=== PATIENT | female | born 1950 | race Caucasian/White ===

== ENCOUNTER 2016-07-06 16:38 | Inpatient (IN) | payer MEDICARE, OTHER ==
[~2016-07-06 16:38] MED LIST: GLYCOPYRROLATE INJ 0.4 MG/2 ML VIAL ONE; LIDOCAINE 2% INJ-PF (20 MG/ML) 10 ML AMPUL ONE; METOCLOPRAMIDE HCL INJ/PF 10 MG/2 ML SDV ONE; NEOSTIGMINE METHYLSULFATE 10 MG/10 ML VIAL ONE; ONDANSETRON HCL INJ/PF 4 MG/2 ML SDV ONE; ROCURONIUM BROMIDE INJ 50 MG/5 ML VIAL IV ONE; SUCCINYLCHOLINE CHLORIDE INJ 200 MG/10 ML VIAL ONE
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
[2016-07-06] MEDS ORDERED: NORMAL SALINE 1000 ML 1,000 ML IV ONE (17:23)
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
[2016-07-06] MEDS ORDERED: FENTANYL CITRATE INJ/PF 100 MCG/2 ML AMPUL ONE (18:09)
[2016-07-06] MEDS ORDERED: HYDROMORPHONE HCL INJ/PF 2 MG/ML AMPULE ONE (18:09)
[2016-07-06] MEDS ORDERED: MIDAZOLAM 2 MG/2 ML INJ ONE (18:09)
[2016-07-06] MEDS ORDERED: EPHEDRINE SULFATE INJ 50 MG/1 ML AMPULE ONE (18:09)
[2016-07-06] MEDS ORDERED: PROPOFOL INJ 200 MG/20 ML VIAL IV ONE (18:09)
[2016-07-06 18:11] LABS: ABSOLUTE BASOPHILS # (AUTO) 0.1 10^3/uL (0.0-0.2); ABSOLUTE LYMPHOCYTES (AUTO) 1.2 10^3/uL (0.5-4.7); ABSOLUTE MONOCYTES (AUTO) 1.3 10^3/uL (0.1-1.4); ABSOLUTE NEUT (AUTO) 14.8 10^3/uL (1.7-8.2); BASOPHILS % (AUTO) 0.4 % (0-2); EOSINOPHILS % (AUTO) 0.1 % (0-6); HEMATOCRIT 42.7 % (36.0-47.0); HEMOGLOBIN 13.9 g/dL (12.0-15.5); LYMPHOCYTES % (AUTO) 7.1 % (13-45); MEAN CORPUSCULAR HEMOGLOBIN 29.8 pg (27.0-33.4); MEAN CORPUSCULAR HGB CONC 32.6 g/dL (32.0-36.0); MEAN CORPUSCULAR VOLUME 91 fl (80-97); MONOCYTES % (AUTO) 7.3 % (3-13); RED BLOOD COUNT 4.69 10^6/uL (3.72-5.28); SEGMENTED NEUTROPHILS % (AUTO) 85.1 % (42-78); WHITE BLOOD COUNT 17.4 10^3/uL (4.0-10.5)
[2016-07-06] MEDS ORDERED: BUPIVACAINE HCL 0.25 % INJ/PF (2.5 MG/1 ML) 30 ML VIAL ONE (18:12)
[2016-07-06 18:18] LABS: PROTHROMBIN TIME 13.1 SEC (11.4-15.4)
[2016-07-06 18:19] LABS: PARTIAL THROMBOPLASTIN TIME 33.6 SEC (23.5-35.8)
[2016-07-06 18:24] LABS: ALANINE AMINOTRANSFERASE 23 U/L (9-52); ALBUMIN 4.1 g/dL (3.5-5.0); ALKALINE PHOSPHATASE 101 U/L (38-126); ANION GAP 15 (5-19); ASPARTATE AMINO TRANSFERASE 16 U/L (14-36); BILIRUBIN,DIRECT 0.6 mg/dL (0.0-0.4); BILIRUBIN,TOTAL 1.8 mg/dL (0.2-1.3); BLOOD UREA NITROGEN 10 mg/dL (7-20); CALCIUM 9.5 mg/dL (8.4-10.2); CARBON DIOXIDE 25 mmol/L (22-30); CHLORIDE 98 mmol/L (98-107); CREATININE RESULT 0.66 mg/dL (0.52-1.25); GLUCOSE 97 mg/dL (75-110); POTASSIUM 3.7 mmol/L (3.6-5.0); SODIUM 138.2 mmol/L (137-145); TOTAL PROTEIN 7.4 g/dL (6.3-8.2)
[2016-07-06] MEDS ORDERED: AMPICILLIN SOD/SULBACTAM 3 GM VIAL ONE (18:39)
[2016-07-06] MEDS ORDERED: PROMETHAZINE HCL INJ 25 MG/1 ML VIAL IV PRN (19:16)
[2016-07-06] MEDS ORDERED: DIPHENHYDRAMINE HCL 50 MG/ML VIAL IV PRN (19:16)
[2016-07-06] MEDS ORDERED: MEPERIDINE HCL/PF INJ 25 MG/1 ML DISP.SYRIN IV PRN (19:16)
[2016-07-06] MEDS ORDERED: FENTANYL CITRATE INJ/PF 100 MCG/2 ML AMPUL IV PRN ×3 (19:16)
[2016-07-06] MEDS ORDERED: BUPIVACAINE HCL 0.25 % INJ/PF (2.5 MG/1 ML) 30 ML VIAL INJ ONE (19:18)
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
--- NOTE | 2016-07-06 21:48 | OPERATIVE REPORT E ---
Operative Report NAME: NEIL GIRON : 1950 AGE: 66Y DATE OF SURGERY: 07/06/2016 ROOM: ED35 PREOPERATIVE DIAGNOSIS: Acute appendicitis. POSTOPERATIVE DIAGNOSIS: Acute appendicitis. OPERATION: Attempted laparoscopic appendectomy, open appendectomy. SURGEON: NERIS GARIBAY M.D. ANESTHESIA: General. INDICATIONS: This is a 66-year-old female with right lower quadrant pain for the past 2 days. She had a CT scan of the abdomen in an urgent care center today which was compatible with acute appendicitis. The patient did have multiple operations in the past. PROCEDURE: After adequate general anesthesia, the abdomen was then prepped and draped in the usual sterile fashion. Appropriate timeout was then performed. An attempted laparoscopic appendectomy was performed by placing 3 ports in the right upper quadrant, right lower quadrant, and the left lower quadrant areas after lysing some of the adhesions. Unfortunately, it was quite impossible to identify the appendix in view of the limited exposure. Because of this, the procedure was converted to an open. Next, a midline incision was made just above the umbilicus to just above the symphysis pubis. The fascia was then opened, and the adhesions were lysed. Next, the cecum was then identified and followed into the area of the appendix. It was retrocecal and very adherent towards the cecal area. There was some inflammation noted around this area. Next, the base of the appendix was then dissected from the cecum and ligated with 2-0 Vicryl to subsequently divide it. The stump was then electrocoagulated. The appendix was then dissected bluntly and sharply with the use of harmonic david. Part of the appendix was disconnected, and the rest of the appendix was then further dissected out. The area was then irrigated with saline solution copiously. There were quite extensive adhesions. The base of the appendiceal stump was subsequently pushed in a pursestring suture using 3-0 silk. Next, the fascia was then closed with running suture using #1 PDS. The fascial defects on the right upper quadrant and left lower quadrant incisions were attempted laparoscopic procedure were then closed with interrupted sutures of 0 Vicryl. The subcutaneous layers were then irrigated with saline solution and closed with interrupted bryan. Telfa carlos manuel soaked in Betadine were then used to place in between the bryan. Sterile dressings were then placed over the operative sites. Needle, instrument and sponge counts were all correct, and estimated blood loss was 30 mL. The patient tolerated the procedure well and brought to the recovery room in satisfactory condition. DICTATING PHYSICIAN: NERIS GARIBAY M.D. [id number] PHY#: [id number] ID: [id number] JOB#: [id number] ACCT: [id number] cc:NERIS GARIBAY M.D. >
[2016-07-06] MEDS: ONDANSETRON HCL INJ/PF 4 MG/2 ML SDV IV PRN (22:42)
[2016-07-07] MEDS: PIPERACILLIN SODIUM/TAZOBACTAM 3.375 GM in NORMAL SALINE 100 ML IV SCH ×4 (00:25→20:03)
[2016-07-07] MEDS: HYDROMORPHONE HCL INJ/PF 2 MG/ML AMPULE IV PRN ×5 (01:46→21:16)
[2016-07-07 02:26] LABS: APPEARANCE,URINE CLEAR; BILIRUBIN,URINE NEGATIVE (NEGATIVE); GLUCOSE, URINE NEGATIVE (NEGATIVE); KETONES,URINE 80 mg/dL (NEGATIVE); LEUKOCYTE ESTERASE,URINE NEGATIVE (NEGATIVE); NITRITE,URINE NEGATIVE (NEGATIVE); PROTEIN,URINE NEGATIVE (NEGATIVE); URINE SPECIFIC GRAVITY 1.034; UROBILINOGEN,URINE NEGATIVE mg/dL (<2.0)
[2016-07-07] MEDS: NORMAL SALINE 1000 ML 1,000 ML IV PRN ×2 (05:10→22:36)
[2016-07-07 06:44] LABS: MEAN CORPUSCULAR VOLUME 91 fl (80-97)
[2016-07-07 06:58] LABS: HGB HCT DIFFERENCE 0.4; MEAN CORPUSCULAR HEMOGLOBIN 30.4 pg (27.0-33.4); MEAN CORPUSCULAR HGB CONC 33.6 g/dL (32.0-36.0); RED BLOOD COUNT 3.87 10^6/uL (3.72-5.28); RED CELL DISTRIBUTION WIDTH 13.6 % (11.5-14.0); WHITE BLOOD COUNT 15.1 10^3/uL (4.0-10.5)
[2016-07-07 07:00] LABS: ANION GAP 12 (5-19); BLOOD UREA NITROGEN 7 mg/dL (7-20); CALCIUM 8.5 mg/dL (8.4-10.2); CARBON DIOXIDE 23 mmol/L (22-30); CHLORIDE 103 mmol/L (98-107); CREATININE RESULT 0.51 mg/dL (0.52-1.25); GLUCOSE 104 mg/dL (75-110); POTASSIUM 3.4 mmol/L (3.6-5.0); SODIUM 138.2 mmol/L (137-145)
[2016-07-07 07:05] LABS: HEMOGLOBIN 11.8 g/dL (12.0-15.5)
[2016-07-07] MEDS: ONDANSETRON HCL INJ/PF 4 MG/2 ML SDV IV PRN ×3 (08:07→21:23)
[2016-07-07] MEDS ORDERED: HYDRALAZINE HCL INJ/PF 20 MG/1 ML SDV IV PRN (08:51)
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
--- NOTE | 2016-07-07 11:43 | PROGRESS NOTE E ---
Progress Note NAME: NEIL GIRON : 1950 AGE: 66Y DATE: 07/07/2016 ROOM: 430 POSTOP FOLLOWUP SUBJECTIVE: The patient had an open appendectomy last night for acute appendicitis. OBJECTIVE: This morning her abdomen is soft, nontender, just tender at the incision site. Her dressings are dry. She is afebrile. PLAN: To get her out of bed, ambulate and start her on subcutaneous heparin for DVT prophylaxis. Hopefully we can start her on clear liquids earlier today. DICTATING PHYSICIAN: NERIS GARIBAY M.D. [id number] PHY#: [id number] ID: [id number] JOB#: [id number] ACCT: [id number] cc: >
[2016-07-08] MEDS: PIPERACILLIN SODIUM/TAZOBACTAM 3.375 GM in NORMAL SALINE 100 ML IV SCH ×5 (00:45→23:12)
[2016-07-08] MEDS: ONDANSETRON HCL INJ/PF 4 MG/2 ML SDV IV PRN ×3 (03:35→16:49)
[2016-07-08] MEDS: HYDROMORPHONE HCL INJ/PF 2 MG/ML AMPULE IV PRN (03:35)
[2016-07-08 06:36] LABS: ABSOLUTE MONOCYTES (AUTO) 1.1 10^3/uL (0.1-1.4); ABSOLUTE NEUT (AUTO) 8.7 10^3/uL (1.7-8.2); BASOPHILS % (AUTO) 0.3 % (0-2); EOSINOPHILS % (AUTO) 0.2 % (0-6); HEMATOCRIT 35.2 % (36.0-47.0); HEMOGLOBIN 11.8 g/dL (12.0-15.5); HGB HCT DIFFERENCE 0.2; LYMPHOCYTES % (AUTO) 8.8 % (13-45); MEAN CORPUSCULAR HEMOGLOBIN 30.5 pg (27.0-33.4); MEAN CORPUSCULAR HGB CONC 33.4 g/dL (32.0-36.0); MEAN CORPUSCULAR VOLUME 91 fl (80-97); MONOCYTES % (AUTO) 10.4 % (3-13); RED BLOOD COUNT 3.85 10^6/uL (3.72-5.28); RED CELL DISTRIBUTION WIDTH 13.6 % (11.5-14.0); SEGMENTED NEUTROPHILS % (AUTO) 80.3 % (42-78); WHITE BLOOD COUNT 10.8 10^3/uL (4.0-10.5)
[2016-07-08 06:55] LABS: ANION GAP 10 (5-19); BLOOD UREA NITROGEN 7 mg/dL (7-20); CALCIUM 8.3 mg/dL (8.4-10.2); CARBON DIOXIDE 25 mmol/L (22-30); CHLORIDE 104 mmol/L (98-107); CREATININE RESULT 0.48 mg/dL (0.52-1.25); GLUCOSE 92 mg/dL (75-110); POTASSIUM 3.6 mmol/L (3.6-5.0); SODIUM 139.1 mmol/L (137-145)
[2016-07-08] MEDS ORDERED: PROMETHAZINE HCL 25 MG SUPP.RECT PR PRN (08:19)
--- NOTE | 2016-07-08 09:49 | PDOC PROGRESS REPORT ---
Subjective Progress Note for:: 07/08/16 Subjective:: Nausea. Abdominal pain very mild. No flatus. Physical Exam Vital Signs: Temp Pulse Resp BP Pulse Ox 98.0 F 84 14 142/84 H 100 07/08/16 08:32 07/08/16 08:32 07/08/16 08:32 07/08/16 08:32 07/08/16 08:32 Intake & Output 07/07/16 07/08/16 07/09/16 06:59 06:59 06:59 Intake Total 0 3350 Output Total 370 1045 Balance -370 2305 Weight 61.3 kg General appearance: PRESENT: no acute distress, cooperative Respiratory exam: PRESENT: clear to auscultation jena Cardiovascular exam: PRESENT: RRR GI/Abdominal exam: PRESENT: normal bowel sounds, other - Soft but the mildly distended with very mild diffuse abdominal tenderness with no peritoneal signs. Midline wound dressings were removed and her packings were removed. No evidence of dehiscence and no erythema. Extremities exam: PRESENT: other - No swelling and no tenderness. Results Laboratory Results: 07/08/16 05:46 07/08/16 05:46 07/08/16 07/08/16 05:46 05:46 WBC 10.8 H RBC 3.85 Hgb 11.8 L Hct 35.2 L MCV 91 MCH 30.5 MCHC 33.4 RDW 13.6 Plt Count 189 Seg Neutrophils % 80.3 H Lymphocytes % 8.8 L Monocytes % 10.4 Eosinophils % 0.2 Basophils % 0.3 Absolute Neutrophils 8.7 H Absolute Lymphocytes 1.0 Absolute Monocytes 1.1 Absolute Eosinophils 0.0 Absolute Basophils 0.0 Sodium 139.1 Potassium 3.6 Chloride 104 Carbon Dioxide 25 Anion Gap 10 BUN 7 Creatinine 0.48 L Est GFR ( Amer) > 60 Est GFR (Non-Af Amer) > 60 Glucose 92 Calcium 8.3 L Impressions: Chest X-Ray 07/06/16 00:00 IMPRESSION: NO ACUTE RADIOGRAPHIC FINDING IN THE CHEST. Assessment & Plan - Diagnosis (1) Appendicitis Qualifiers: Appendicitis type: acute appendicitis Acute appendicitis type: unspecified acute appendicitis type Qualified Code(s): K35.80 - Unspecified acute appendicitis Is this a current diagnosis for this admission?: YesPlan: Status post open appendectomy via midline incision with lysis of adhesions although patient has bowel sounds that she does not have good bowel function as of yet. She is nauseated with the some abdominal distention. Will back off of her diet for now. DC her Fuentes catheter. Encourage more ambulation.
[2016-07-08] MEDS ORDERED: DEXTROSE 5%-1/2 NORMAL SALINE 1,000 ML with POTASSIUM CHLORIDE 20 MEQ IV PRN ×2 (09:50)
[2016-07-08] MEDS: POTASSI CL 20 MEQ/D5-1/2NS 1L 1,000 ML IV PRN (10:36)
[2016-07-08] MEDS: KETOROLAC TROMETHAMINE INJ/PF 30 MG/1 ML SDV IV PRN ×2 (10:43→23:45)
--- NOTE | 2016-07-08 10:46 | PDOC PROGRESS REPORT ---
Subjective Progress Note for:: 07/08/16 Subjective:: Complains of nausea Physical Exam Vital Signs: Temp Pulse Resp BP Pulse Ox 98.0 F 84 14 142/84 H 100 07/08/16 08:32 07/08/16 08:32 07/08/16 08:32 07/08/16 08:32 07/08/16 08:32 Intake & Output 07/07/16 07/08/16 07/09/16 06:59 06:59 06:59 Intake Total 0 3350 Output Total 370 1045 Balance -370 2305 Weight 61.3 kg General appearance: PRESENT: no acute distress Eye exam: PRESENT: conjunctiva pink. ABSENT: scleral icterus Mouth exam: PRESENT: moist, tongue midline Neck exam: ABSENT: JVD Respiratory exam: PRESENT: clear to auscultation jena. ABSENT: rales, rhonchi, wheezes Cardiovascular exam: PRESENT: RRR. ABSENT: diastolic murmur, rubs, systolic murmur GI/Abdominal exam: PRESENT: other - Surgical dressing in place in the midline. Extremities exam: ABSENT: calf tenderness, clubbing, pedal edema Neurological exam: PRESENT: alert, awake, oriented to person, oriented to place , oriented to time, oriented to situation, CN II-XII grossly intact. ABSENT: motor sensory deficit Psychiatric exam: PRESENT: appropriate affect Skin exam: PRESENT: dry, intact, warm. ABSENT: cyanosis, rash Results Laboratory Results: 07/08/16 05:46 07/08/16 05:46 07/08/16 07/08/16 05:46 05:46 WBC 10.8 H RBC 3.85 Hgb 11.8 L Hct 35.2 L MCV 91 MCH 30.5 MCHC 33.4 RDW 13.6 Plt Count 189 Seg Neutrophils % 80.3 H Lymphocytes % 8.8 L Monocytes % 10.4 Eosinophils % 0.2 Basophils % 0.3 Absolute Neutrophils 8.7 H Absolute Lymphocytes 1.0 Absolute Monocytes 1.1 Absolute Eosinophils 0.0 Absolute Basophils 0.0 Sodium 139.1 Potassium 3.6 Chloride 104 Carbon Dioxide 25 Anion Gap 10 BUN 7 Creatinine 0.48 L Est GFR ( Amer) > 60 Est GFR (Non-Af Amer) > 60 Glucose 92 Calcium 8.3 L Impressions: Chest X-Ray 07/06/16 00:00 IMPRESSION: NO ACUTE RADIOGRAPHIC FINDING IN THE CHEST. Assessment & Plan - Diagnosis (1) Hypertension Is this a current diagnosis for this admission?: YesPlan: Patient's blood pressures currently in the normal range we will hold lisinopril. Will give IV hydralazine when needed (2) Appendicitis Qualifiers: Appendicitis type: acute appendicitis Acute appendicitis type: unspecified acute appendicitis type Qualified Code(s): K35.80 - Unspecified acute appendicitis Is this a current diagnosis for this admission?: YesPlan: Managed by the surgical service - Time Time Spent with patient: 15-24 minutes - Inpatient Certification Medical Necessity: Need for Pain Control
--- NOTE | 2016-07-08 15:44 | EKG REPORT ---
SEVERITY:- OTHERWISE NORMAL ECG - SINUS TACHYCARDIA : Confirmed by: Nikky Sawant MD 08-Jul-2016 15:42:22
[2016-07-09] MEDS: POTASSI CL 20 MEQ/D5-1/2NS 1L 1,000 ML IV PRN ×2 (02:00→16:16)
[2016-07-09] MEDS: PIPERACILLIN SODIUM/TAZOBACTAM 3.375 GM in NORMAL SALINE 100 ML IV SCH ×2 (06:22→12:57)
[2016-07-09 07:11] LABS: HEMATOCRIT 37.7 % (36.0-47.0); HEMOGLOBIN 12.7 g/dL (12.0-15.5); HGB HCT DIFFERENCE 0.4; MEAN CORPUSCULAR HEMOGLOBIN 30.8 pg (27.0-33.4); MEAN CORPUSCULAR HGB CONC 33.8 g/dL (32.0-36.0); MEAN CORPUSCULAR VOLUME 91 fl (80-97); RED BLOOD COUNT 4.13 10^6/uL (3.72-5.28); RED CELL DISTRIBUTION WIDTH 13.5 % (11.5-14.0); WHITE BLOOD COUNT 8.5 10^3/uL (4.0-10.5)
[2016-07-09 07:37] LABS: ANION GAP 11 (5-19); BLOOD UREA NITROGEN 6 mg/dL (7-20); CALCIUM 8.5 mg/dL (8.4-10.2); CARBON DIOXIDE 26 mmol/L (22-30); CHLORIDE 103 mmol/L (98-107); CREATININE RESULT 0.46 mg/dL (0.52-1.25); GLUCOSE 132 mg/dL (75-110); POTASSIUM 3.3 mmol/L (3.6-5.0); SODIUM 140.2 mmol/L (137-145)
--- NOTE | 2016-07-09 10:50 | PDOC PROGRESS REPORT ---
Subjective Progress Note for:: 07/09/16 Subjective:: Still nauseated; minimal gas or stool. Physical Exam Vital Signs: Temp Pulse Resp BP Pulse Ox 98.2 F 87 19 151/95 H 100 07/09/16 07:50 07/09/16 07:50 07/09/16 07:50 07/09/16 07:50 07/09/16 07:50 Intake & Output 07/08/16 07/09/16 07/10/16 06:59 06:59 06:59 Intake Total 3350 1801 Output Total 1045 1540 Balance 2305 261 General appearance: PRESENT: other - Looks puny. GI/Abdominal exam: PRESENT: other - Dressing removed; minimal around midline wound. All bryan intact. Drain with serous fluid removed by Dr. duarte Results Laboratory Results: 07/09/16 06:32 07/09/16 06:32 07/09/16 07/09/16 06:32 06:32 WBC 8.5 RBC 4.13 Hgb 12.7 Hct 37.7 MCV 91 MCH 30.8 MCHC 33.8 RDW 13.5 Plt Count 253 Sodium 140.2 Potassium 3.3 L Chloride 103 Carbon Dioxide 26 Anion Gap 11 BUN 6 L Creatinine 0.46 L Est GFR ( Amer) > 60 Est GFR (Non-Af Amer) > 60 Glucose 132 H Calcium 8.5 Impressions: Chest X-Ray 07/06/16 00:00 IMPRESSION: NO ACUTE RADIOGRAPHIC FINDING IN THE CHEST. Assessment & Plan - Diagnosis (1) Appendicitis Qualifiers: Appendicitis type: acute appendicitis Acute appendicitis type: unspecified acute appendicitis type Qualified Code(s): K35.80 - Unspecified acute appendicitis Is this a current diagnosis for this admission?: YesPlan: Now 3 days status post laparoscopic converted to open appendectomy, slowed ago, no complications, nausea Plan: 1. Ambulate 2. Encourage nonnarcotic pain medication 3. Hopefully can start clear liquids later today.
--- NOTE | 2016-07-09 16:30 | PDOC PROGRESS REPORT ---
Subjective Progress Note for:: 07/09/16 Subjective:: Patient states she still has not had flatus or bowel movement. She had one episode of emesis this morning, but has been started on clear liquids this afternoon by surgery. Patient denies fever, chills, headache, new focal weakness , chest pain, shortness of breath. Physical Exam Vital Signs: Temp Pulse Resp BP Pulse Ox 98.9 F 79 16 137/88 H 97 07/09/16 15:18 07/09/16 15:18 07/09/16 15:18 07/09/16 15:18 07/09/16 15:18 Intake & Output 07/08/16 07/09/16 07/10/16 06:59 06:59 06:59 Intake Total 3350 1801 350 Output Total 1045 1540 960 Balance 2305 261 -610 GENERAL: No acute distress HEENT: Conjunctiva clear, nonicteric, moist mucous membranes, no JVD, midline trachea RESPIRATORY: Clear to auscultation bilaterally, no wheezes, no rhonchi CARDIAC: Regular rate and rhythm, no murmurs/gallops/rubs ABDOMEN: Soft, slightly distended, absent bowel sounds, no rebound, no guarding EXTREMETIES: No edema, cyanosis, clubbing NEUROLOGIC: Alert, oriented to person/place/time, CN's grossly intact, no focal deficits SKIN: No rash, wounds PSYCH: Normal mood, normal affect Results Laboratory Results: 07/09/16 06:32 07/09/16 06:32 07/09/16 07/09/16 06:32 06:32 WBC 8.5 RBC 4.13 Hgb 12.7 Hct 37.7 MCV 91 MCH 30.8 MCHC 33.8 RDW 13.5 Plt Count 253 Sodium 140.2 Potassium 3.3 L Chloride 103 Carbon Dioxide 26 Anion Gap 11 BUN 6 L Creatinine 0.46 L Est GFR ( Amer) > 60 Est GFR (Non-Af Amer) > 60 Glucose 132 H Calcium 8.5 Impressions: Chest X-Ray 07/06/16 00:00 IMPRESSION: NO ACUTE RADIOGRAPHIC FINDING IN THE CHEST. Assessment & Plan - Diagnosis (1) Appendicitis Qualifiers: Appendicitis type: acute appendicitis Acute appendicitis type: unspecified acute appendicitis type Qualified Code(s): K35.80 - Unspecified acute appendicitis Is this a current diagnosis for this admission?: YesPlan: Patient is status post appendectomy. She is being managed by surgery and has been started on clear liquids. (2) Hypertension Is this a current diagnosis for this admission?: YesPlan: Resume patient's outpatient dose of lisinopril now that she is able to take oral intake. Continue when necessary IV hydralazine. Patient is stable from the standpoint so Hospital medicine service will sign off. Please reconsult as needed. - Time Time Spent with patient: 15-24 minutes
[2016-07-09] MEDS ORDERED: OXYCODONE-ACETAMINOPHEN 5-325 MG TABLET PO PRN (18:05)
[2016-07-10] MEDS ORDERED: LISINOPRIL 5 MG TABLET PO SCH (10:00)
[2016-07-10] MEDS ORDERED: MAGNESIUM CITRATE 296 ML BOTTLE PO ONE (11:15)
[2016-07-10 11:44] VITALS: BP 132/84
--- NOTE | 2016-07-10 14:03 | DISCHARGE SUMMARY E ---
Discharge Summary NAME: NEIL GIRON : 1950 AGE: 66Y ADMITTED: 07/06/2016 DISCHARGED: 07/10/2016 ADMITTING DIAGNOSIS: Acute appendicitis. DISCHARGE DIAGNOSIS: Acute appendicitis. OPERATIVE INTERVENTION: Open appendectomy done by on-call covering surgeon. Patient admitted for postoperative bilious management. The patient's pain has been under control. No nausea, no vomiting, no fevers. Today started having bowel activity. Tolerating diet. Abdominal examination is soft abdomen with clean incisions. Doing very well, so will discharge her home with [place] for he pain. Follow up in clinic in 1 week. The patient was given all the discharge instructions. DICTATING PHYSICIAN: ALICIA WHELAN M.D. [id number] PHY#: [id number] ID: [id number] JOB#: [id number] ACCT: [id number] cc:Rolf SCHULTE M.D. > MTDD
== END 2016-07-10 16:42 | disposition home or self-care (01) | DRG 343 ==
LOC: ER 16:38 → UNDOADMIN 18:17 → EH 18:17 → 4S 22:20 → EH 22:20 → 4S 23:38 → EH 23:38
PROVIDERS: ADMIT Surgery; ATTEND Surgery
PROC: 0DJD4ZZ Inspection of Lower Intestinal Tract, Percutaneous Endoscopic Approach (ICD-10-PCS; 2016-07-06)
PROC: 0DTJ0ZZ Resection of Appendix, Open Approach (ICD-10-PCS; principal; 2016-07-06 18:00)
DX: K35.80 Unspecified acute appendicitis (principal); I10 Essential (primary) hypertension; Z53.31 Laparoscopic surgical procedure converted to open procedure
CPT/HCPCS: 36415; 71010; 80048; 80053; 81001; 840; 85025; 85027; 85610; 85730; 88304; 93005; 93010; 99285; J0295; J0330; J1170; J1885; J2250; J2405; J2543; J2704; J2765; J3010; J3480; J3490; J7030